=== PATIENT | female | born 1945 | race Caucasian/White ===

== ENCOUNTER → 2024-04-18 | Outpatient (CLI) | payer OTHER, SELFPAY ==
--- NOTE | 2024-04-18 10:50 | VDUE_ITS ---
Reason For Study: Preop planning Right Lower Arm Left Arm Proximal Radial artery diameter 1.5 x 1.7 Left Brachial artery diameter 3.8 x 3.6 mm. mm. Left Brachial artery waveform is triphasic . Proximal Radial artery waveform is Lateral Brachial vein diameter 1.9 x 2.0 mm. triphasic . Medial Brachial vein diameter 1.8 x 1.7 mm. Proximal Lateral Radial vein diameter 1.4 x Vision Rehabilitation Therapist Vein is present. 1.8 mm. Vision Rehabilitation Therapist Vein measures 2.6 mm. Proximal Medial Radial vein diameter 0.8 x Cephalic Vein at proximal upper arm measures 1.3 mm. 1.5 x 1.5 mm. Distal Radial artery diameter 2.1 x 2.2 mm. Cephalic vein at proximal upper arm depth Distal Lateral Radial vein diameter 0.6 x measures 4.4 mm. 0.8 mm. Cephalic Vein at mid upper arm measures 2.4 Distal Medial Radial vein diameter 0.7 x 0.9 x 2.3 mm. mm. Cephalic vein at mid upper arm depth Proximal Ulnar artery diameter 2.3 x 2.5 mm. measures 2.5 mm. Proximal Ulnar artery waveform is Cephalic Vein distal upper arm measures 2.1 triphasic . x 1.9 mm. Proximal Lateral Ulnar vein diameter 1.9 x Cephalic vein at distal upper arm depth 2.2 mm. measures 1.8 mm. Proximal Medial Ulnar vein diameter 2.0 x Cephalic Vein proximal forearm measures 1.2 2.9 mm. x 1.2 mm. Distal Ulnar artery diameter 1.8 x 2.1 mm. Cephalic Vein at mid forearm measures 1.3 x Distal Lateral Ulnar vein diameter 0.6 x 0.4 1.6 mm. mm. Cephalic Vein at distal forearm measures 0.9 Distal Medial Ulnar vein diameter 0.4 x 0.7 x 1.1 mm. mm. Proximal Basilic vein measures 2.8 x 2.5 mm. Right Arm Proximal Basilic vein depth measures 6.9 mm. Right Brachial artery diameter 3.7 x 3.6 mm. Mid Basilic vein measures 2.2 x 2.4 mm. Right Brachial artery waveform is Mid Basilic vein depth measures 7.1 mm. triphasic . Distal Basilic vein measures 2.5 x 2.7 mm. Lateral Brachial vein diameter 2.4 x 2.5 mm. Distal Basilic vein depth measures 6.6 mm. Medial Brachial vein diameter 2.3 x 2.0 mm. Left Lower Arm Vision Rehabilitation Therapist Vein is present. Proximal Radial artery diameter 2.3 x 2.3 Vision Rehabilitation Therapist Vein measures 1.9 mm. mm. Cephalic Vein at proximal upper arm measures Proximal Radial artery waveform is 2.8 x 3.2 mm. triphasic . Cephalic vein at proximal upper arm depth Proximal Lateral Radial vein diameter 1.3 x measures 3.9 mm. 1.4 mm. Cephalic Vein at mid upper arm measures 3.8 Proximal Medial Radial vein diameter 0.8 x x 3.8 mm. 0.7 mm. Cephalic vein at mid upper arm depth Distal Radial artery diameter 1.8 x 1.9 mm. measures 1.9 mm. Distal Lateral Radial vein diameter 0.5 x Cephalic Vein distal upper arm measures 3.4 0.6 mm. x 3.6 mm. Distal Medial Radial vein diameter 0.5 x 0.7 Cephalic vein at distal upper arm depth mm. measures 1.5 mm. Proximal Ulnar artery diameter 2.9 x 2.6 mm. Cephalic Vein proximal forearm measures 2.2 Proximal Ulnar artery waveform is x 2.7 mm. triphasic . Cephalic Vein at mid forearm measures 2.2 x Proximal Lateral Ulnar vein diameter 2.7 x 2.8 mm. 2.8 mm. Proximal Basilic vein measures 3.8 x 3.7 mm. Proximal Medial Ulnar vein diameter 2.6 x Proximal Basilic vein depth measures 8.5 mm. 2.3 mm. Mid Basilic vein measures 4.4 x 4.6 mm. Distal Ulnar artery diameter 0.8 x 0.8 mm. Mid Basilic vein depth measures 6.6 mm. Distal Lateral Ulnar vein diameter 0.4 x 0.4 Distal Basilic vein measures 4.7 x 5.1 mm. mm. Distal Basilic vein depth measures 4.9 mm. Distal Medial Ulnar vein diameter 0.4 x 0.4 mm. VL/Dialysis Vein Map PRE-OP BILAT Interpretation Summary Bilateral upper extremity arteries patent with normal waveforms and measurement s above. Bilateral upper extremity vein patent with measurements above. Ordering Physician: Huma Florentino Referring Physician: Nikki Mahmood Performed By: Becca Cadena RVT and Student ???
== END | disposition home or self-care (01) ==
LOC: CVS 10:49
PROVIDERS: PCP Student in an Organized Health Care Education/Training Program; Referring Provider Physician Assistant; Visit Provider Physician Assistant
DX: Z01.818 Encounter for other preprocedural examination (principal); N18.6 End stage renal disease; Z99.2 Dependence on renal dialysis
CPT/HCPCS: 93985

== ENCOUNTER 2024-05-21 11:25 | Day surgery (SDC) | payer SELFPAY, OTHER ==
[2024-05-21] VITALS (9 sets, daily range): BP systolic 118–159; BP diastolic 56–78; PULSE 72–86; RESP 16–18; TEMP 22.7–36.8; O2SAT 97–100; BMI 19.5
[2024-05-21] MEDS: 0.9% Normal Saline (1000mL) 1,000 ML 15 ML IV (12:14)
--- NOTE | 2024-05-21 12:39 | PCM.PRE.AN2 ---
ASA Classification* ASA Classification ASA Classification: 3 Assessment & Plan Anesthesia* Anesthesia Assessment Anesthesia Assessment: Discussed sedation and/or anesthesia options, risks, benefits, and alternatives with patient/parents/legal guardian/POA. Questions invited. The patient/parents/legal guardian/POA seems to understand and agrees to proceed with anesthesia plan. Reviewed the physical assessment, medical history, allergy history and patient home medications list prior to surgery/procedure/anesthetic and documented any changes. Performed airway and anesthesia risk assessments. Anesthesia Type Anesthesia Type: MAC History Source History Obtained from:: Patient and Chart Anesthesia Focused Assessment* Temperature: 73 F Pulse Rate: 72 Blood Pressure: 159/56 Respiratory Rate: 16 Pulse Ox: 97 Oxygen Delivery Method: Room Air Airway Assessment Mouth opens: >3 cm Mallampati Score: I Teeth Condition: Caps/Crowns (Cap on #9. It is tight.) Neck Range of motion (ROM): Full ROM Focused Labs Anesthesia Preop lab: CBC CHEMISTRY COAG Pre-Assessment Diagnosis/Proposed Procedure Planned Operative Procedure(s): RIGHT ARM FISTULA CREATION Anesthesia History Anesthesia History - staff cytotechnologist: Anesthesia History - staff cytotechnologist Hx Hospitalization Yes: BACK SURGERY December 04/25/24 10:27 - [facility] Any Problems With Anesthesia No 04/25/24 10:27 Cholinesterase deficiency No 04/25/24 10:27 You/Your Family Experience No 04/25/24 10:27 fever (hyperthermia) with Relationship Recent Exposure to Contagious No 05/21/24 12:06 Disease Does patient have nerve No 04/25/24 10:27 stimulator Patient instructed to have device shut off --Does patient have Pacemaker No 05/21/24 12:06 or ICD? When Was Last Pacemaker Check QUESTION #4 FULL TEXT: You/Your Family Experience fever (hyperthermia) with Anesthesia Last Oral Intake Last Oral intake: Last Oral Intake NPO since 17:00 05/21/24 12:06 Meds taken in AM with sips of water? Meds patient instructed to HYDRALAZINE, LEVOTHYROXINE, 05/21/24 12:06 take am of surgery METOPROLOL Any additional information?: Yes Meds taken in AM with sips of water?: Yes PONV PONV - staff cytotechnologist: PONV - staff cytotechnologist Female Yes 04/25/24 10:27 HX of Motion Sickness No 04/25/24 10:27 HX of N/V After Surgery No 04/25/24 10:27 Non-Smoker Yes 04/25/24 10:27 Duration of Surgery greater Yes 04/25/24 10:27 than 60 minutes Number of Risk Factors 3 04/25/24 10:27 PONV Score Moderate Risk 04/25/24 10:27 Height & Weight Height & Weight: Anesthesia: Height & Weight Height 5 ft 6 in 05/21/24 12:06 Weight: 55 kg 05/21/24 12:06 Body Mass Index (BMI) 19.5 05/21/24 12:06 Respiratory Assessment Respiratory Assessment - staff cytotechnologist: Respiratory Tract Infection Hx - staff cytotechnologist Hx Respiratory Tract Infection No 04/25/24 10:27 STOP Sleep Apnea STOP Sleep Apnea - staff cytotechnologist: STOP Sleep Apnea - staff cytotechnologist Hx Hypertension Yes: CONTROLLED WITH MEDS 04/25/24 10:27 Hx Sleep Apnea No 04/25/24 10:27 CPAP BIPAP Do you snore loudly (louder No 04/25/24 10:27 than talking or can be heard Do you often feel tired/ No 04/25/24 10:27 fatigued/ sleepy during daytime? Has anyone observed you stop No 04/25/24 10:27 breathing during sleep? STOP Results Negative 04/25/24 10:27 QUESTION #5 FULL TEXT : Do you snore loudly (louder than talking or can be heard through closed doors)? 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 Specify any problems Hx of Preganancy in last 3 No 04/25/24 10:27 Months Nurse Filling Out Transfusion [id number] 04/25/24 10:27 & Questions: Date: 04/25/24 04/25/24 10:27 Time: 10:34 04/25/24 10:27 Patient unable to answer at this time (ie. confused, unrespo /Reproduction History /Reproductive History - staff cytotechnologist: /Reproductive Hx- staff cytotechnologist Hx Now No 04/25/24 10:27 Gestational Age (in weeks): EDC: Hx Hx Para Hx Section SAB No 04/25/24 10:27 Active Medications Active Medications: Current Medications Generic Name Dose Route Start Last Admin Trade Name Freq PRN Reason Stop Dose Admin Cefazolin Sodium 2 gm/ Sodium 110 mls @ 150 mls/hr 05/21/24 13:30 Chloride IV 05/21/24 14:13 PREOP ONE Sodium Chloride 1,000 mls @ 15 mls/hr 05/21/24 11:40 05/21/24 12:14 IV 15 mls/hr .Q48H ERIN Administration PFSH Medical History Wears hearing aid Wears glasses Walker as ambulation aid Bite from insect Thyroid disease Incontinence Kidney disease Anemia Back pain Leg cramps Foot drop History of edema Cardiology follow-up encounter History of atrial fibrillation Home Medications ?Medication ?Instructions ?Recorded ?Last Taken ?Type furosemide 40 mg tablet 40 mg PO BID 02/20/24 Unknown History hydralazine 10 mg tablet 10 mg PO BID 02/20/24 05/21/24 History levothyroxine 112 mcg tablet 112 mcg PO QDAY 02/20/24 05/21/24 History metoprolol tartrate 25 mg tablet 25 mg PO BID 02/20/24 05/21/24 History Allergy/AdvReac Type Severity Reaction Status Date / Time ibuprofen AdvReac Severe Other Verified 05/21/24 12:04 Family History Other Breast cancer CAD (coronary artery disease) CVA (cerebral vascular accident) Colon cancer Heart disease Hypertension Kidney disease Thyroid disorder Surgical History Previous back surgery History of total right hip replacement Social History Smoking Status: Never smoker alcohol intake: never substance use type: does not use Review of Systems (Anesthesia) ROS Narrative System reviewed and no additional complaints, except as documented.
--- NOTE | 2024-05-21 13:58 | HP.PCM_ITS ---
History and Physical Allergies ibuprofen Adverse Reaction (Severe, Verified 04/18/24 13:11) Other Medications ?Medication ?Instructions ?Recorded ?Confirmed ?Type furosemide 40 mg tablet 40 mg PO BID 02/20/24 04/18/24 History hydralazine 10 mg tablet 10 mg PO BID 02/20/24 04/18/24 History levothyroxine 112 mcg tablet 112 mcg PO QDAY 02/20/24 04/18/24 History metoprolol tartrate 25 mg tablet 25 mg PO BID 02/20/24 04/18/24 History Have you fallen in the past year?: No PFSH Surgical History Previous back surgery History of total right hip replacement (~12/2023) Family History Other Breast cancer CAD (coronary artery disease) CVA (cerebral vascular accident) Colon cancer Heart disease Hypertension Kidney disease Thyroid disorder Social History Smoking Status: Never smoker alcohol intake: never substance use type: does not use HPI HPI HPI: JOÃO BURNS, is a 78 F who presents to the office today for further discussion of AV access for dialysis. She has had her vein mapping. Continues to use right IJ catheter without difficulties. She is right hand dominant, no prior pacer/node dissection/rib or clavicle fracture. ROS General General: Yes fatigue and weakness; No weight change, appetite, colon cancer or breast cancer HEENT HEENT: No difficulty swallowing, eye injury, eye surgery, swollen glands or hoarseness Endo Endocrine: Yes thyroid disease; No diabetes mellitus, thyroid cancer, Hair loss, heat intolerance or cold intolerance Skin Skin: No rash or changing moles Musc Musculoskeletal: Yes back problems, arthritis and gout; No rheumatoid arthritis or joint pain Cardio Cardiovascular: Yes high blood pressure; No murmur, pacemaker, heart disease, atrial fibrillation, heart attack, heart stent, palpitations, shortness of breat with exertion or chest pain Psych Psychiatric: No depression, anxiety or hearing voices Resp Respiratory: No shortness of breath, No sleep apnea, No cough, No COPD, No asthma, No emphysema and No wheezing Gastro Gastrointestinal: No abdominal pain, No nausea or vomiting, No diarrhea, Yes constipation, No blood in stool, No acid reflux, No hemorrhoids, No ulcers, No gallbladder problem and No black,tarry stools Raj Hematologic: No blood thinners, No blood disorders, No bleeding, Yes anemia and No blood clots Neuro Neurologic: No system reviewed and no additional complaints, except as documented, No as per HPI, No abnormal gait, No abnormal hearing, No abnormal movements, No abnormal speech, No behavioral changes, Yes burning sensations, No confusion, No convulsions, Yes disequilibrium, Yes dizziness, No localized weakness, No frequent falls, No headache(s), No lack of coordination, No loss of vision, Yes memory loss, Yes numbness, No other visual disturbances, No radicular pain, No restless legs, No sensory deficit, No syncope, Yes tingling, No tremor(s), Yes weakness and No other Exam Const General: cooperative, healthy appearing, comfortable, no acute distress and well developed Nutritional Appearance: well nourished Orientation: alert, awake and oriented x3 HENMT Head: normocephalic and atraumatic Ears: hearing grossly normal bilaterally Nose: external nose normal Eyes General: appearance normal, both eyes and all related structures EOM: EOM intact bilaterally Neck Neck: normal visual inspection, full ROM, no lymphadenopathy and trachea midline Thyroid: thyroid normal Lymphatic: no lymphadenopathy noted Resp Effort & Inspection: normal respiratory effort, able to speak in complete sent ences, symmetric chest movement, no audible wheezes, not labored, no stridor and no use of accessory muscles Cardio Rate: regular rate Rhythm: regular rhythm Pulses: brachial pulses present and radial pulses present Skin General: no rashes or lesions noted and no erythema Wounds: no wounds Neuro Cranial Nerves: CN's II-XI intact bilaterally and EOM intact bilaterally Speech: speech normal Gait: normal gait Motor: strength 5/5 throughout Sensory Exam: no sensory deficits noted Psych Appearance: grossly normal and well kempt Mental Status: mental status grossly normal Mood: congruent mood Speech and Movement: speech and movement normal Thought Content: normal Judgment: judgment good Coding Level of Care Code Off vis,est,level 3 Diagnoses ESRD (end stage renal disease) on dialysis N18.6; Z99.2 Assessment and Plan Assessment and Plan (1) ESRD (end stage renal disease) on dialysis: Status: Chronic Plan: -vein mapping reveals right basilic adequate and upper arm cephalic adequate though one section appears small, left basilic marginal -plan right cephalic vs basilic depending on intra-op findings
[2024-05-21] MEDS: Cefazolin 2 GM in 0.9% Normal Saline (100mL Bag) 100 ML IV (14:03)
[2024-05-21] MEDS: Heparin Injection (Vial) 5,000 UNIT/ML VIAL 5000 UNIT (14:33)
[2024-05-21] MEDS: Lidocaine 1% (20 ml mdv) 20 ML Vial (14:33)
[2024-05-21] MEDS: Bupivacaine 0.25% 30 ML Vial (14:33)
--- NOTE | 2024-05-21 15:34 | EX.PCM.DISCH ---
Discharge Instructions Activity Lifting Restrictions: do not lift > 20 lbs with right arm for 2 weeks Dressing / Incision Call your doctor if your incision/area has: Sudden Increased Bleeding, Increased Pain/ Swelling and Foul Smelling Discharge Call your doctor if you observe: Coldness, Increased Pain and Numbness or Tingling Remove Dressing in: 2 days Cleanse incision/area with: Soap & Water Follow Up Care Test Results: Test results from this visit will be discussed in further detail at your follow-up appointment, if applicable. Discharge Plan Admission Attending Provider: Jose Eduardo Manley Primary Care Provider: Nikki Mahmood Instructions Print Language: [place] Discharge Orders/Prescriptions Prescriptions: New oxycodone 5 mg tablet 5 mg PO Q8H PRN (Reason: pain) 2 Days Qty: 6 0RF Continued hydralazine 10 mg tablet 10 mg PO BID furosemide 40 mg tablet 40 mg PO BID Patient Comments: PER PT, CAN TAKE UP TO 80 MG metoprolol tartrate 25 mg tablet 25 mg PO BID levothyroxine 112 mcg tablet 112 mcg PO QDAY Referrals / Follow Up: Nikki Mahmood MD [Primary Care Provider] - Disposition Disposition (needs filled in before D/C Order can be placed): Home, Self Care
--- NOTE | 2024-05-21 15:38 | PCM.OPRPT ---
Report of Operation Date of Procedure: 05/21/24 Pre-Operative Diagnosis: ESRD Post-Operative Diagnosis: same Surgery/Procedure Performed:: right radio-ceph fistula creation Surgeon: Jose Eduardo Manley Type of Anesthesia: Local and MAC Estimated Blood Loss (mL): 3 Description of Procedure: HPI: Patient is a 78-year-old female with end-stage renal disease currently on dialysis. She had preoperative vein mapping which revealed adequate right upper arm cephalic and basilic veins with possible discontinuity of the cephalic vein. She presents now for fistula creation. Prior to the procedure the basilic and cephalic veins were assessed with ultrasound both were found to be satisfactory caliber and continuous so plan was for cephalic fistula creation. Description of procedure: Upon obtaining form consent and verification correct patient procedure site patient taken to the operating where she was positioned prepped and draped in usual sterile fashion. Timeouts performed and sedation administered by anesthesia. Ultrasound used to evaluate cephalic vein and its position relative to the brachial artery. It was noted that she had an intact poultry husbandry teacher vein which was satisfactory caliber which was in close proximity to the brachial bifurcation. Also was noted that the cephalic vein was continuous throughout the upper arm. Skin overlying the vessels distal to the antecubital crease with Nestabs 1% lidocaine and transverse incision created. Both electrocautery was dissect down through subcutaneous tissue and self-retaining retractors put in position. Sharp dissection used to dissect free the medial lateral cubital branches and deep vein poultry husbandry teacher with sidebranches ligated with silk ties and divided. Once this was mobilized it was retracted laterally and dissection carried down to the fascia. The fascia was then incised and sharp dissection used to dissect free the brachial artery down onto the bifurcation into the radial and ulnar arteries. Right angle used to place Vesseloops around the brachial artery proximally and the radial and ulnar individually distally. The patient was in heparinized allowed circulate for 3 minutes. The poultry husbandry teacher vein was then ligated and divided and the outflow into the cephalic vein dilated up to 3 mm. This was then flushed heparinized saline and marked to maintain orientation. The brachial artery and distal branches were then occluded the Vesseloops and longitudinal arteriotomy created on the proximal radial artery and extended with Ac scissors. The vein was then beveled to match the arteriotomy and anastomosis perform using a 6-0 Prolene running fashion. Prior to completing suture on the vessels were backbled after completing the suture line clamps were released and satisfactory stasis was noted. There was a palpable radial pulse at the wrist and a palpable thrill in the cephalic vein as well as into the basilic vein via the medial cubital branch. Doppler was used to evaluate the cephalic vein and it had a weak low resistance signal that improved significantly with manual compression of the medial cubital branch. Is felt that in order to promote cephalic vein maturation that the medial cubital branch would need to be sacrificed with this was then ligated with medium clip. The Doppler signal and thrill in the cephalic vein were significantly improved after ligation of the medial branch. The incision was then inspected for hemostasis and then closed with 3-0 Vicryl followed by 4 Monocryl and Dermabond for the skin. The patient was taken to recovery in anticipated discharge to home.
--- NOTE | 2024-05-21 15:55 | PCM.POST.ANE ---
Anesthesia: Postop Eval I Current Vital Signs Temperature: 98.1 F Pulse Rate: 85 Blood Pressure: 118/69 Respiratory Rate: 18 Pulse Ox: 100 Assessment Airway patent: Yes Spontaneous unlabored respirations: Yes nausea: No Vomiting: No Anesthesia Complication: No Fluid Hydration Crystalloid volume administer (ml): 300 Total IV fluid infused: 300 Progress Note Anesthesia document: Postop Eval 1 completed: Yes
--- NOTE | 2024-05-21 16:29 | POSTOPAN2_ITS ---
Anesthesia Postop Eval I Sum Postop Eval Completion status Anesthesia document: Postop Eval 1 completed: Yes Anesthesia Postop Eval I Summary Anesthesia Postop Eval I Summary: Anesthesia Postop Eval I: Assessment Summary Airway patent Yes 05/21/24 15:55 FIREWORKS [email or web address] Spontaneous unlabored Yes 05/21/24 15:55 FIREWORKS [email or web address].[email or web address] respirations Mental status nausea No 05/21/24 15:55 FIREWORKS [email or web address] Vomiting No 05/21/24 15:55 FIREWORKS [email or web address] Anesthesia Postop Eval I: Fluid Summary Crystalloid volume administer 300 05/21/24 15:55 FIREWORKS [email or web address].CSIR (ml) Colloids volume administered ( ml) Blood Product volume administered (ml) Total IV fluid infused 300 05/21/24 15:55 FIREWORKS [email or web address].CSIR Anesthesia Postop Eval I: Summary Notes Anesthesia Complication No 05/21/24 15:55 FIREWORKS [email or web address].[email or web address] Anesthesia Complication Comment: Post-operative progress note Anesthesia: Postop Eval II Evaluation Mental status: Awake and Calm Pain Level: 0 nausea: No Vomiting: No Complications Anesthesia Complication: No
--- NOTE | 2024-05-21 16:29 | PCM.POSTANE2 ---
Anesthesia Postop Eval I Sum Postop Eval Completion status Anesthesia document: Postop Eval 1 completed: Yes Anesthesia Postop Eval I Summary Anesthesia Postop Eval I Summary: Anesthesia Postop Eval I: Assessment Summary Airway patent Yes 05/21/24 15:55 DERRICK BOAT OPERATOR.[email or web address] Spontaneous unlabored Yes 05/21/24 15:55 DERRICK BOAT OPERATOR.CSIR respirations Mental status nausea No 05/21/24 15:55 DERRICK BOAT OPERATOR.CSIR Vomiting No 05/21/24 15:55 DERRICK BOAT OPERATOR.CSIR Anesthesia Postop Eval I: Fluid Summary Crystalloid volume administer 300 05/21/24 15:55 DERRICK BOAT OPERATOR.CSIR (ml) Colloids volume administered ( ml) Blood Product volume administered (ml) Total IV fluid infused 300 05/21/24 15:55 DERRICK BOAT OPERATOR.CSIR Anesthesia Postop Eval I: Summary Notes Anesthesia Complication No 05/21/24 15:55 DERRICK BOAT OPERATOR.CSIR Anesthesia Complication Comment: Post-operative progress note Anesthesia: Postop Eval II Evaluation Mental status: Awake and Calm Pain Level: 0 nausea: No Vomiting: No Complications Anesthesia Complication: No
--- NOTE | 2024-05-21 16:54 | SUR.PHASEII ---
dr rodgers called regarding bleeding to site, pressure dressing changed and pressure applied for 5 min. no drainage noted after pt getting dressed.
== END 2024-05-21 17:00 | disposition home or self-care (01) ==
LOC: SDC 11:27 → AC 11:29
PROVIDERS: PCP Student in an Organized Health Care Education/Training Program; Referring Provider Surgery Trauma Surgery; Visit Provider Surgery Trauma Surgery
PROC: (CPT 36821; principal; 2024-05-21 13:15)
DX: I12.0 Hypertensive chronic kidney disease with stage 5 chronic kidney disease or end stage renal disease (principal); N18.6 End stage renal disease; I25.10 Atherosclerotic heart disease of native coronary artery without angina pectoris; E07.9 Disorder of thyroid, unspecified; Z99.2 Dependence on renal dialysis; Z79.890 Hormone replacement therapy; Z79.899 Other long term (current) drug therapy; Z86.73 Personal history of transient ischemic attack (TIA), and cerebral infarction without residual deficits
CPT/HCPCS: 36821; A4648; J7030; J2405

== ENCOUNTER → 2024-06-27 | Outpatient (CLI) | payer SELFPAY, OTHER ==
--- NOTE | 2024-06-27 07:39 | MRI_ITS ---
STUDY: MRI LUMBAR SPINE WITH AND WITHOUT CONTRAST REASON FOR EXAM: Female, 79 years old. COMPRESSION DEFORMITY OF VERTEBRAE, PAIN TECHNIQUE: Standardized fat and water weighted pulse sequences were obtained in the sagittal and axial planes. CLARISCAN 10 CC IV was administered for the contrast portion of the examination. COMPARISON: CT earlier today FINDINGS: T12-L1: Normal endplates. Normal disc height, hydration and morphology. Normal bilateral facet joints. Normal central canal and bilateral lateral recesses. Normal bilateral intervertebral neural foramina. Normal lumbar lordosis. There is no substantial scoliosis. Normal conus medullaris that terminates at the L1. Severe wedge compression fracture of the T12 vertebral body with mild marrow edema consistent with a subacute fracture. No retropulsion into the spinal canal. Mild loss of height and concavity the superior plate of the L1 vertebral body without marrow edema consistent with a chronic compression fracture. Severe compression fracture with wedging deformity of the L5 vertebral body without marrow edema consistent with a chronic severe compression fracture. Focal kyphosis and 2 mm retropulsion of the superior endplate and the spinal canal produces mild spinal stenosis. L1-2: Normal endplates. Normal disc height, hydration and morphology. Normal bilateral facet joints. Normal central canal and bilateral lateral recesses. Normal bilateral intervertebral neural foramina. L2-3: Status post transpedicular fixation. Mild broad disc protrusion reduces mild spinal stenosis and mild bilateral neural foraminal stenosis. L3-4: Status post posterior decompression and transpedicular fixation with 2 mm of anterolisthesis of L3 on L4. No spinal stenosis or neural foraminal stenosis. L4-5: Status post posterior decompression and transpedicular fixation with focal kyphosis due to the compression fracture of L5 but no spinal stenosis or neural foraminal stenosis. L5-S1: Normal endplates. Normal disc height, hydration and morphology. Normal bilateral facet joints. Normal central canal and bilateral lateral recesses. Normal bilateral intervertebral neural foramina. Normal visualized sacral ala. Normal visualized paraspinous soft tissue structures. There is no demonstrated abnormal enhancement. MRI/Spine Lumbar W/WO Contrast IMPRESSION: Subacute moderate compression fracture of T12 without retropulsion into the spinal canal. Chronic mild compression fracture of L1 and chronic severe compression fracture of L5. Postsurgical changes with no severe spinal stenosis or neural foraminal stenosis. Electronically Signed: Fantasma Martínez MD at 12:51 EDT ,
--- NOTE | 2024-06-27 07:40 | AVDS_ITS ---
Reason For Study: S/P right rad-ceph AVF RIGHT Inflow, 257/102.7 cm/sec. Inflow, 1172 ml/min. Prox anastamosis, 927.1/410 cm/sec. Prox anastamosis, 369.7 ml/min. Prox graft, 159.8/50.9 cm/sec. Prox graft, 1394 ml/min. Mid graft, 88/43.8 cm/sec. Mid graft, 878.4 ml/min. Distal graft, 68.3/32.7 cm/sec. Distal graft, 508.1 ml/min. Outflow, 62.2/26.6 cm/sec. Outflow, 429.4 ml/min. VL/AV Fistula/Dialysis Graft Scan Interpretation Summary Patent right cephalic fistula with adequate flow volumes, diameter and normal v elocities. Ordering Physician: Huma Florentino Referring Physician: Nikki Mahmood Performed By: Becca Cadena RVT
--- NOTE | 2024-06-27 07:41 | CT_ITS ---
HISTORY: COMPRESSION DEFORMITY OF VERTEBRA. TECHNIQUE: Helically acquired images were obtained of the lumbar spine without contrast. A radiation dose optimization technique was used for this scan. 416 images. COMPARISON: None. FINDINGS: VERTEBRAE: Moderate T12, mild L1, and severe L5 compression fractures with linear lucency and sclerosis. L2-5 posterior spinal fusion hardware decompressive laminectomies. Generalized osteopenia. ALIGNMENT: 4 mm anterolisthesis of L3-4 and L4-5. Mild levoscoliosis. INTERVERTEBRAL DISCS: T12-L1: Mild posterior disc bulge osteophyte complex with facet arthropathy. Minimal narrowing of the thecal sac and mild bilateral foraminal narrowing. L2-3: Mild degenerative change with mild bilateral foraminal narrowing. L5-S1: Vacuum disc phenomenon. Degenerative change. Decompressive laminectomy. OTHER: Central venous catheter tip noted in the high right atrium. Right hip arthroplasty present. CT/Spine Lumbar without Contrast IMPRESSION: Subacute moderate T12, mild L1, and severe L5 compression fractures. L2-5 posterior spinal fusion hardware with decompressive laminectomies extending to L5-S1. Mild anterolisthesis of L3-4 and L4-5. Mild scoliosis. Multilevel degenerative change. Electronically Signed: Jasmine Flood MD at 9:54 EDT ,
== END | disposition home or self-care (01) ==
LOC: CT 07:36
PROVIDERS: PCP Student in an Organized Health Care Education/Training Program; Referring Provider Orthopaedic Surgery Orthopaedic Surgery of the Spine; Visit Provider Orthopaedic Surgery Orthopaedic Surgery of the Spine
DX: M43.9 Deforming dorsopathy, unspecified (principal); I77.0 Arteriovenous fistula, acquired
CPT/HCPCS: 72131; 72158; 93990; A9575

== ENCOUNTER → 2024-09-04 | Outpatient (CLI) | payer OTHER, SELFPAY ==
--- NOTE | 2024-09-04 10:40 | AVDS_ITS ---
Reason For Study: Right rad-ceph AVF RIGHT Inflow, 237.6/98.9 cm/sec. Inflow, 1071 ml/min. Prox anastamosis, 785.8/346.5 cm/sec. Prox anastamosis, 1723 ml/min. Prox graft, 146.7/48.0 cm/sec. Prox graft, 1255 ml/min. Mid graft, 92.7/54.2 cm/sec. Mid graft, 532.0 ml/min. Distal graft, 92.6/49.8 cm/sec. Distal graft, 537.4 ml/min. Outflow, 104.7/52.0 cm/sec. Outflow, 599.1 ml/min. Branches noted in Right Prox Graft and Distal Graft. VL/AV Fistula/Dialysis Graft Scan Interpretation Summary Patent right radio-cephalic fistula patent with adequate flow volume and diamet er throughout. Elevated velocities at proximal. Ordering Physician: Jose Eduardo Manley Referring Physician: Nikki Mahmood MD Performed By: Jj Vickers RVT and Student
== END | disposition home or self-care (01) ==
LOC: CVS 10:37
PROVIDERS: PCP Student in an Organized Health Care Education/Training Program; Referring Provider Surgery Trauma Surgery; Visit Provider Surgery Trauma Surgery
DX: I77.0 Arteriovenous fistula, acquired (principal)
CPT/HCPCS: 93990

== ENCOUNTER 2024-09-16 10:50 | Day surgery (SDC) | payer OTHER, SELFPAY ==
[2024-09-13 07:17] VITALS: BMI 19.8
--- NOTE | 2024-09-16 11:27 | HP.PCM_ITS ---
HPI - General HPI Narrative JOÃO BURNS, is a 79 F who presents with prior right upper arm cephalic fistula that is difficult to access. Duplex revealed elevated velocities at proximal fistula. Otherwise adequate size/flow volume/depth [facility] Medical History Wears hearing aid Wears glasses Walker as ambulation aid Bite from insect Thyroid disease Incontinence Kidney disease Anemia Back pain Leg cramps Foot drop History of edema Cardiology follow-up encounter History of atrial fibrillation Home Medications ?Medication ?Instructions ?Recorded ?Last Taken ?Type furosemide 40 mg tablet 40 mg PO BID 02/20/24 Unknown History hydralazine 10 mg tablet 10 mg PO BID 02/20/24 05/21/24 History levothyroxine 112 mcg tablet 112 mcg PO QDAY 02/20/24 09/16/24 History metoprolol tartrate 25 mg tablet 25 mg PO BID 02/20/24 05/21/24 History magnesium aspart,citrate,oxide mg PO 06/13/24 Unknown History Allergy/AdvReac Type Severity Reaction Status Date / Time ibuprofen AdvReac Severe Other Verified 08/12/24 16:17 Family History Other Breast cancer CAD (coronary artery disease) CVA (cerebral vascular accident) Colon cancer Heart disease Hypertension Kidney disease Thyroid disorder Surgical History Previous back surgery History of total right hip replacement Social History Smoking Status: Never smoker alcohol intake: never substance use type: does not use ROS Constitutional Constitutional: Denies chills, fever(s), frequent falls, lethargy or weakness Eyes Eyes: Denies blind spots, change in vision or loss of vision ENT HEENT: Denies bleeding gums, hoarseness or sore throat Cardiovascular Cardiovascular: Denies abdominal pain, bluish discoloration of hand/feet, chest pain with activity, claudication, cold extremities, cyanosis, dyspnea on exertion, erythema on extremities, irregular heart rhythm, leg edema, leg ulcers, numbness in extremities or weakness in extremities Respiratory/Chest Respiratory/Chest: Denies cough, excessive phlegm production, shortness of breath at rest, shortness of breath with exertion or wheezing Gastrointestinal Gastrointestinal: Denies anorexia, change in stool character, constipation, diarrhea, melena or rectal bleeding Genitourinary Genitourinary: Denies dysuria or hematuria Musculoskeletal Musculoskeletal: Denies abnormal gait Integumentary Integumentary: Reports other Details: ; Denies erythema, non-healing lesions or wounds Neurologic Neurologic: Denies abnormal speech, focal weakness, headache(s), loss of vision, numbness, paresthesias or sensory deficit Hematologic/Lymphatic Hematologic/Lymphatic: Denies easy bleeding, easy bruising or lymphadenopathy Vital Signs Vital Signs Vital Signs: Weight Weight: 123 lb Body Mass Index (BMI) 19.8 Physical Exam Const alert, oriented x3, no apparent distress and healthy appearing General Appearance: cooperative; Negative for combative or lethargic Orientation / Consciousness: awake Exam Limitations: no limitations HEENT Head and Scalp: normocephalic and atraumatic Eyes EOMs intact bilaterally General Eye: normal appearance of both eyes Neck full ROM and no lymphadenopathy General: trachea midline Resp normal respiratory effort and no use of accessory muscles Effort and Inspection: Negative for labored, stridor or audible wheezes Cardio regular rate and regular rhythm Peripheral Pulses: brachial pulses present and radial pulses present Back/Spine Cervical Spine: cervical ROM normal Extremity full ROM, normal capillary refill and no clubbing, cyanosis or edema Skin no rashes or lesions noted and no wounds Neuro oriented x3, CN's II-XII intact bilaterally, no focal motor deficits and no sensory deficits noted Psych thought process normal, cooperative, affect normal, speech normal and activity/motor behavior normal Assessment & Plan Assessment/Plan (1) Dialysis AV fistula malfunction: QUALIFIERS: Encounter type: initial encounter Qualified Code(s): T82.590A - Other mechanical complication of surgically created arteriovenous fistula, initial encounter PLAN: -fistulagram
--- NOTE | 2024-09-16 17:14 | OP.PCM_ITS ---
Operative Report (Standard) Operative Information Date of Procedure: 09/16/24 Pre-Operative Diagnosis: Fistula malfunction with difficult cannulation Post-Operative Diagnosis: Same, stenosis of the proximal fistula Surgery/Procedure Performed: Fistulogram with angioplasty of right upper arm radiocephalic fistula Intravascular ultrasound evaluation right radial artery and cephalic vein fistula managing editor: No Type of Anesthesia: Local and Sedation,Conscious Procedure Start Time: 11:30 Procedure Stop Time: 12:30 Select all DRAINS/GRAFTS/IMPLANTS that apply: None Estimated Blood Loss: 3 Specimen collected: No Description of surgery: HPI: Patient is a 79-year-old female with a prior right upper extremity fistula creation which has been difficult to cannulate. She had a duplex which revealed satisfactory caliber and flow volumes however there is some elevated velocities just beyond the anastomosis. She presents now for fistulogram. Description procedure: Upon obtaining form consent and verification correct patient procedure site patient taken to [facility] where she was positioned prepped and draped in usual sterile fashion. Timeouts performed conscious sedation administered Versed and fentanyl. Skin overlying the fistula was anesthetized with lidocaine and the vessel accessed with a micropuncture needle wire and ultrasound guidance. This was then exchanged for the 6 [place] fistula sheath through which hand-injection fistulogram was performed with sequential imaging the right upper extremity to include the superior vena cava. The fistula was then compressed injection performed with reflux into the arterial system. This revealed irregularity just beyond the arterial anastomosis which was either stenosis or tortuosity. An 018 wire was then advanced and navigated into the radial artery. Intravascular ultrasound probe was advanced over the wire and recorded pullback performed of the radial artery, the anastomosis, and the cephalic fistula proximally. This revealed greater than 75% stenosis likely a thickened valve. The patient was in heparinized allowed to circulate for 3 minutes. A 5 mm x 2 angiosculpt balloon was advanced in position and centered on the lesion. It was inflated to nominal for 3 minutes, repositioned, and reinflated and then deflated and withdrawn. There was significant waist in the location of the lesion. Next a 6 mm x 20 Bard conquest balloon was advanced in position centered on the lesion inflated until the waist resolved and kept inflated for 3 minutes and deflated and withdrawn. A 6 mm x 40 Bard Jackie tonics drug-coated angioplasty balloon was advanced and centered on the lesion and then inflated to nominal for 2 minutes then deflated and withdrawn. Completion hand- injection fistulogram with the fistula compressed was performed which revealed resolution of the irregularity and stenosis at the proximal fistula. Nylon pursestring was then placed at the access site and the sheath withdrawn. Manual pressure was then held for 5 minutes after which satisfactory stasis was noted. The patient was then taken the recovery area with plan discharged to home. Surgical Findings: See above Complications Complications: No
== END 2024-09-16 14:10 | disposition home or self-care (01) ==
PROVIDERS: PCP Student in an Organized Health Care Education/Training Program; Referring Provider Surgery Trauma Surgery; Visit Provider Surgery Trauma Surgery
DX: T82.858A Stenosis of other vascular prosthetic devices, implants and grafts, initial encounter (principal); E07.9 Disorder of thyroid, unspecified; Z79.890 Hormone replacement therapy; Y71.8 Miscellaneous cardiovascular devices associated with adverse incidents, not elsewhere classified
CPT/HCPCS: 36902; 37252; 37253; 76937; 99152; 99153; C1725; C1753; C2623; C1769

== ENCOUNTER 2024-12-11 09:10 | Outpatient (CLI) | payer SELFPAY, OTHER ==
--- NOTE | 2024-12-11 09:34 | BD_ITS ---
PROCEDURE: DEXA BONE DENSITY/APPEND SKEL REASON FOR EXAM: None provided TECHNIQUE: DEXA scan of the bilateral forearms, using a Hologic Horizon W. REFERENCE LINKS: ISCD Adult Positions COMPARISON: None FINDINGS: LEFT FOREARM, 1/3 radius: Bone mineral denisty: 0.619 g/cm??? T-score: -1.2 RIGHT FOREARM, 1/3 radius: Bone mineral denisty: 0.635 g/cm??? T-score: -1.0 FRAX*: Not calculated as bone mineral density of the hips and lumbar spine was not measured. *FRAX is a trademark of the [employer]'s [place] [employer] Metabolic Bone Disease, World Health Organization (WHO) Collaborating [place]. 1-Major Osteoporotic Fracture: Clinical Spine, Forearm, Hip or Shoulder. 2-The 10-year probability of fracture may be lower than reported if the patient has received treatment. BD/Dexa Bone Density/Append Skel IMPRESSION: 1. Osteopenia. 2. No prior exams are available for comparison. 3. Additional description as above. Reading Location: [id number]
== END 2024-12-11 23:59 | disposition home or self-care (01) ==
PROVIDERS: PCP Student in an Organized Health Care Education/Training Program; Referring Provider Student in an Organized Health Care Education/Training Program; Visit Provider Student in an Organized Health Care Education/Training Program
DX: Z13.820 Encounter for screening for osteoporosis (principal); M85.839 Other specified disorders of bone density and structure, unspecified forearm
CPT/HCPCS: 77081

== ENCOUNTER 2025-01-17 18:23 | Outpatient (CLI) | payer OTHER, SELFPAY ==
[2025-01-17 19:21] LABS: Absolute Lymphocyte Count 0.96 X10^3/uL (0.83-4.51); Absolute Neutrophil Count 5.3 X10^3/uL (2.0-7.7); Basophil# 0.04 X10^3/uL; Basophil% 0.6 % (0-1); Eosinophil# 0.14 X10^3/uL; Hematocrit 32.3 % (37-47); Hemoglobin 10.8 g/dL (12.0-15.0); Lymphocyte # 0.96 X10^3/ul (0.83-4.51); Lymphocyte % 13.7 % (19-41); Mean Corp Hgb Conc 33.4 g/dL (32-36); Mean Corpuscular Hgb 34.1 pg (27.0-32.0); Mean Corpuscular Volume 101.9 fL (81-99); Mean Platelet Vol. 9.8 fl (6.2-12.0); Monocyte# 0.53 X10^3/uL; Monocyte% 7.6 % (0-10); NRBC Flagged by Analyzer 0 % (0-5); Neutrophil % 75.7 % (47-70); Platelet Count 189 K/mm3 (150-450); RBC Distribution Width CV 13.6 % (11.6-14.6); RBC Distribution Width SD 51.8 fl (35.1-43.9); Red Blood Count 3.17 M/mm3 (4.2-5.4)
[2025-01-17 20:42] LABS: BUN 14 mg/dL (4-19)
[2025-01-17 21:01] LABS: BUN 45 mg/dL (4-19); Hepatitis B Surface Antigen Nonreactive (Nonreactive); Potassium 4.7 mmol/L (3.3-5.1)
== END 2025-01-17 23:59 | disposition home or self-care (01) ==
LOC: LABSPEC 18:23
PROVIDERS: PCP Student in an Organized Health Care Education/Training Program; Visit Provider Internal Medicine Nephrology
DX: N18.6 End stage renal disease (principal)
CPT/HCPCS: 84132; 84520; 85025; 87340